=== PATIENT | female | born 1985 | race American Indian/Alaskan Native ===

== ENCOUNTER 2017-06-11 19:43 | Inpatient (IN) | payer OTHER ==
[2017-06-11 19:45] VITALS: BMI 44.2
--- NOTE | 2017-06-11 20:31 | ED PDOC ---
Arrival/HPI - General Chief Complaint: Pacemaker Problem Time Seen by Provider: 06/11/17 20:02 Historian: Patient - History of Present Illness Narrative History of Present Illness (Text): 06/11/17 20:15 A 31 year old female, whose past medical history includes cardiac arrhythmias, cardiac arrest, DVT, recent implantation of internal defibrillator 1 week prior , presents to the emergency department complaining of occasional vague chest discomfort associated with slight thumping sensation to chest. Patient reports she experiences heart rate going lower and has been experiencing generalized weakness for couple of days. Also, associated with one episode of vomiting. Patient denies of any fever, chills, diarrhea, shortness of breath, or any other complaints. No PMD Past Medical History - Provider Review Nursing Documentation Reviewed: Yes - Infectious Disease Hx of Infectious Diseases: None - Cardiac Hx Cardiac Disorders: Yes Hx Pacemaker: Yes Other/Comment: Random sinus tachycardia. Cardiac arrest @17 years old. Pacemaker/defib - Pulmonary Hx Asthma: Yes Hx Pulmonary Embolism: Yes - Neurological Hx Neurological Disorder: Yes Hx Migraine: Yes - HEENT Hx Blind: No - Endocrine/Metabolic Hx Endocrine Disorders: Yes Hx Diabetes Mellitus Type 2: Yes - Hematological/Oncological Hx Blood Disorders: No - Integumentary Hx Dermatological Disorder: Yes Other/Comment: Shingles - Musculoskeletal/Rheumatological Hx Musculoskeletal Disorders: No - Gastrointestinal Hx Gastrointestinal Disorders: No - Genitourinary/Gynecological Hx Genitourinary Disorders: No - Psychiatric Hx Psychophysiologic Disorder: No Hx Substance Use: No - Surgical History Hx Orthopedic Surgery: Yes (left knee) Hx Tubal Ligation: Yes Other/Comment: pacemaker placement with defib - Anesthesia Hx Anesthesia: Yes Hx Anesthesia Reactions: No - Suicidal Assessment Feels Threatened In Home Enviroment: No Family/Social History - Physician Review Nursing Documentation Reviewed: Yes Family/Social History: No Known Family HX Smoking Status: Never Smoked Hx Alcohol Use: No Hx Substance Use: No Allergies/Home Meds Allergies/Adverse Reactions: Allergies aspirin Allergy (Verified 06/11/17 19:55) ANAPHYLAXIS NSAIDS (Non-Steroidal Anti-Inflamma Allergy (Verified 06/11/17 19:55) SHORTNESS OF BREATH walnut Allergy (Verified 06/11/17 19:55) ANAPHYLAXIS coumadin Allergy (Uncoded 06/11/17 19:55) SHORTNESS OF BREATH Home Medications: Home Meds Medication Instructions Recorded Confirmed No Known Home Med 06/11/17 06/11/17 Review of Systems - Physician Review All systems were reviewed & negative as marked: Yes - Review of Systems Constitutional: absent: Fevers, Night Sweats Eyes: Other (generalized weakness) Respiratory: absent: SOB Cardiovascular: Other ("thumping sensation in chest") Gastrointestinal: Vomiting (one peisode of vomiting). absent: Diarrhea Physical Exam Vital Signs Reviewed: Yes Vital Signs Temp Pulse Resp BP Pulse Ox 06/11/17 23:00 98.6 F 75 16 120/86 99 06/11/17 21:45 98.6 F 77 16 124/77 99 06/11/17 19:45 98.5 F 79 16 113/69 100 Temperature: Afebrile Blood Pressure: Normal Pulse: Regular Respiratory Rate: Normal Appearance: Positive for: Well-Appearing Pain Distress: None Mental Status: Positive for: Alert and Oriented X 3 - Systems Exam Head: Present: Atraumatic, Normocephalic Pupils: Present: PERRL Extroacular Muscles: Present: EOMI Conjunctiva: Present: Normal Mouth: Present: Moist Mucous Membranes Neck: Present: Normal Range of Motion Respiratory/Chest: Present: Clear to Auscultation, Good Air Exchange, Other ( bandage to upper left chest wall defibrillator placement; no errythema to area) . No: Respiratory Distress, Accessory Muscle Use Cardiovascular: Present: Regular Rate and Rhythm, Normal S1, S2. No: Murmurs Abdomen: Present: Normal Bowel Sounds. No: Tenderness, Distention, Peritoneal Signs Back: Present: Normal Inspection Upper Extremity: Present: Normal Inspection. No: Cyanosis, Edema Lower Extremity: Present: Normal Inspection. No: Edema, CALF TENDERNESS Neurological: Present: GCS=15, CN II-XII Intact, Speech Normal Skin: Present: Warm, Dry, Normal Color. No: Rashes Psychiatric: Present: Alert, Oriented x 3, Normal Insight, Normal Concentration Medical Decision Making ED Course and Treatment: 06/11/17 20:18 Impression: 31 year old female with occasional vague chest discomfort associated with slight thumping sensation to chest. Physical exam shows bandage to upper left chest wall (defibrillator placement); overall normal examination. Plan: -- EKG -- Chest X-ray -- Labs -- Reassess and disposition Prior Visits: Notes and results from previous visits were reviewed. Patient was last seen in the emergency department on 03/08/2016 for headache. Patient was d/c home. Progress Notes: 06/11/17 22:19 Chest xray: No acute process, as read by me. EKG: Ordered, reviewed, and independently interpreted the EKG. Rate : 80 BPM Rhythm : NSR Interpretation : nonspecific T wave changes 06/11/17 23:[address] Darden, who requests patient to be admitted to her service, Dr. Huff on consult. - Lab Interpretations Lab Results: 06/11/17 19:50 06/11/17 21:20 Lab Results 06/11/17 21:20: Sodium 142, Potassium 3.8, Chloride 109 H, Carbon Dioxide 25, Anion Gap 12, BUN 10, Creatinine 1.0, Est GFR ( Amer) > 60, Est GFR (Non- Af Amer) > 60, Random Glucose 92, Calcium 8.6, Total Bilirubin 0.2, AST 28, ALT 32, Alkaline Phosphatase 55, Lactate Dehydrogenase 636, Total Creatine Kinase 94 , Troponin I < 0.01, Total Protein 6.8, Albumin 3.4, Globulin 3.4, Albumin/ Globulin Ratio 1.0 L 06/11/17 19:50: WBC 10.1, RBC 4.40, Hgb 12.2, Hct 37.4, MCV 85.0, MCH 27.7, MCHC 32.6, RDW 13.6, Plt Count 145, MPV 13.7 H 06/11/17 19:50: PT 13.4 H, INR 1.22 H, APTT 28.6 - RAD Interpretation Radiology Orders: 06/11/17 20:19 CHEST PORTABLE [RAD] Stat - Medication Orders Current Medication Orders: Discontinued Medications Fluconazole (Diflucan) 150 mg PO STAT STA PRN Reason: Protocol Stop: 06/11/17 23:37 Last Admin: 06/12/17 00:12 Dose: 150 mg - Scribe Statement The provider has reviewed the documentation as recorded by the Ruslan Akhtar Provider Scribe Attestation: All medical record entries made by the Blancaibjeremiah were at my direction and personally dictated by me. I have reviewed the chart and agree that the record accurately reflects my personal performance of the history, physical exam, medical decision making, and the department course for this patient. I have also personally directed, reviewed, and agree with the discharge instructions and disposition. Disposition/Present on Arrival - Present on Arrival Any Indicators Present on Arrival: No History of DVT/PE: Yes History of Uncontrolled Diabetes: No Urinary Catheter: No History of Decub. Ulcer: No History Surgical Site Infection Following: None - Disposition Have Diagnosis and Disposition been Completed?: Yes Diagnosis: Chest pain Disposition: HOSPITALIZED Disposition Time: 23:10 Patient Plan: Observation Condition: STABLE
[2017-06-11 20:54] LABS: HEMATOCRIT 37.4 % (36.0-48.0); MEAN CORPUSCULAR HEMOGLOBIN 27.7 pg (25.0-35.0); MEAN CORPUSCULAR HGB CONC 32.6 g/dl (31.0-37.0); MEAN PLATELET VOLUME 13.7 fl (7.0-11.0); RED CELL DISTRIBUTION WIDTH 13.6 % (11.5-14.5); WHITE BLOOD COUNT 10.1 10^3/ul (4.5-11.0)
[2017-06-11 21:27] LABS: INR 1.22 (0.93-1.08); PARTIAL THROMBOPLASTIN TIME 28.6 Seconds (25.1-36.5)
[2017-06-11 22:08] LABS: TROPONIN I < 0.01 ng/mL
[2017-06-11 22:32] LABS: BLOOD UREA NITROGEN 10 mg/dL (7-21); CALCIUM 8.6 mg/dL (8.4-10.5); CARBON DIOXIDE 25 mmol/L (21-33); CHLORIDE 109 mmol/L (98-107); GFR AFRICAN-AMERICAN > 60; GLUCOSE,RANDOM 92 mg/dL (70-110); POTASSIUM 3.8 mmol/L (3.6-5.0); SODIUM 142 mmol/L (132-148); TOTAL PROTEIN 6.8 g/dL (5.8-8.3)
[2017-06-11 22:33] LABS: ALKALINE PHOSPHATASE 55 U/L (38-126); ALT/SGPT 32 U/L (7-56); AST/SGOT 28 U/L (14-36); BILIRUBIN,TOTAL 0.2 mg/dL (0.2-1.3)
[2017-06-12 07:06] LABS: TROPONIN I < 0.01 ng/mL
--- NOTE | 2017-06-12 09:07 | RAD ---
HISTORY: pain COMPARISON: None available. TECHNIQUE: Chest, one view. FINDINGS: Examination limited by habitus. LUNGS: No focal consolidation. Please note that chest x-ray has limited sensitivity for the detection of pulmonary masses. PLEURA: No significant pleural effusion identified. No definite pneumothorax . CARDIOVASCULAR: Single lead left-sided AICD. The cardiomediastinal silhouette appears within normal limits of size. OSSEOUS STRUCTURES: No acute osseous abnormality identified. VISUALIZED UPPER ABDOMEN: Unremarkable. OTHER FINDINGS: None. IMPRESSION: Single lead left-sided AICD.
--- NOTE | 2017-06-12 14:37 | CON ---
DATE: 06/12/2017 INDICATIONS: Chest pain status post recent ICD implant. HISTORY OF PRESENT ILLNESS: This is a 31-year-old woman with a history of cardiac arrest, apparent long QT syndrome, cared for by Dr. Pineda at [facility] with a recent ICD implant, who came to the emergency room complaining of thumping in the chest, slight discomfort in the chest at times, and lack of energy. Most of these symptoms have been present since the recent implant of the ICD about a week ago. She was visiting in [place] and came to [facility] Emergency Room yesterday and was admitted to telemetry. This morning, she feels better. She notes an occasional thumping on telemetry. There has been sinus rhythm and no reports of arrhythmia or pacing noted. Conduit has come to interrogate the defibrillator. Apparently, it is in proper working order. She denies orthopnea, PND, syncope, presyncope, lightheadedness, dizziness, vertigo, edema, claudication, fever, chills, cough, sputum production, hemoptysis, abdominal pain, nausea, vomiting, diarrhea, constipation, or melena. PAST MEDICAL HISTORY: Notable for apparent long QT syndrome with a cardiac arrest at age 17, a recent evaluation, which was resulted in the implantation of an ICD about one week ago. She does not have records from that evaluation. She is under the care of Dr. Pineda. There is no history of rheumatic fever, myocardial infarction, stroke, TIA, diabetes, or hyperlipidemia. There is a history of pulmonary embolism recorded in the chart. There is a history of diabetes and shingles. MEDICATIONS: Medications at the time of admission include no current medications. ALLERGIES: SHE NOTES ALLERGIES TO NSAIDS AND ASPIRIN. SOCIAL HISTORY: She lives at home with her . She does not smoke cigarettes or drink alcohol. She is ambulatory. REVIEW OF SYSTEMS: A 10-point review of systems were otherwise unremarkable except as noted above. PHYSICAL EXAMINATION: GENERAL: She is a well-developed woman lying in bed in telemetry in no acute distress. VITAL SIGNS: She is in sinus rhythm at 78 beats per minute, she is afebrile, blood pressure 105/61, respirations 18, and O2 saturation 98% to 99%. HEENT: Reveals no neck vein distention, thyromegaly or carotid bruits. Mucus membranes are moist. Conjunctivae are pink. NECK: Supple. LUNG: Lung phipps clear. HEART: Examination of the heart revealed normal first and second heart sounds. ABDOMEN: Soft. Bowel sounds present. No mass, organomegaly, tenderness, rebound, or guarding. No CVA tenderness. No palpable abdominal aortic aneurysm. EXTREMITIES: Revealed no cyanosis, clubbing, or edema. NEUROLOGIC: She is awake, alert, and oriented. SKIN: Warm and dry. No rash or cellulitis. PSYCHIATRIC: Normal as to mood and affect. LABORATORY DATA AND IMAGING: EKG demonstrates regular sinus rhythm with T-wave inversions in precordial leads, acute T interval is mildly prolonged. The chest x-ray is unremarkable. There is a ICD present. There is no evidence of congestive heart failure, infiltrate, or effusion. CBC is unremarkable. PT/INR 13.4 and 1.22 respectively. PTT is 28.6, electrolytes, BUN, creatinine, blood sugar, LFTs, CK and 2 troponins all unremarkable. IMPRESSION: Rick Harrell is a 31-year-old woman with apparent prolonged QT syndrome and a history of cardiac arrest with recent ICD implant who suffered from palpitations, may have a history of supraventricular tachycardia also who complains of thumping in the chest, lack of energy, and low blood pressure since the implantable cardioverter-defibrillator implant about one week ago by Dr. Pineda. PLAN: At this time, she appears stable. The ICD was checked by the [employer] independent sales representative and apparently it is functioning well. He is providing this information to Dr. Pineda directly. I have discussed the possibility of the patient being transferred to [facility] for further evaluation and perhaps reprogramming of her device. She is looking into this and is contacting Dr. Pineda's office. In the meantime, she will be out of bed and ambulate to see if her symptoms return. We will continue to monitor on telemetry. I will follow along with you. I will make additional recommendations based on her clinical course. Ashish Huff MD
--- NOTE | 2017-06-12 16:53 | CARD ---
APPROVED REPORT EKG Measurement Heart [id number] <Conclusion> Normal sinus rhythm Nonspecific T wave abnormality Abnormal ECG
--- NOTE | 2017-06-12 20:07 | CT ---
EXAM: CT Pelvis Without Intravenous Contrast CLINICAL HISTORY: 31 years old, female; Pain; Hip pain; Left hip; Additional info: Lt hip pain TECHNIQUE: Axial computed tomography images of the pelvis without intravenous contrast. All CT scans at this facility use one or more dose reduction techniques, viz.: automated exposure control; ma/kV adjustment per patient size (including targeted exams where dose is matched to indication; i.e. head); or iterative reconstruction technique. Coronal and sagittal reformatted images were created and reviewed. COMPARISON: No relevant prior studies available. FINDINGS: Bones/joints: No acute fracture. Soft tissues: Subcentimeter nodule with minimal surrounding inflammation right anterior abdominal wall, nonspecific. Intraperitoneal space: Trace free fluid within pelvis. IMPRESSION: 1. No fracture. 2. If hip pain persists, consider MRI to exclude occult fracture/internal derangement. 3. Incidental/non-acute findings are described above.
--- NOTE | 2017-06-12 22:49 | HP ---
HISTORY OF PRESENT ILLNESS: This 31-year-old female was examined at the bedside in the presence of her nurse, Marleny Dodson, registered nurse. The patient was examined earlier by Dr. Huff from Cardiology. She was admitted through the Emergency Room with complaints of thumping in her chest in the setting of a recently placed pacemaker defibrillator at [facility] in [place] approximately 1 week ago. The patient was also complaining of nonspecific complaints of left leg weakness, discomfort, history of feeling anxious and fatigue and this is all subsequent to her reportedly newly diagnosed QT prolongation syndrome that prompted the placement of a pacemaker defibrillator approximately 1 week ago by her Cardiology team in [place], [place]. PAST MEDICAL HISTORY: The patient denies any other significant past medical history. She is morbidly obese. She states she had a history of a DVT in the distant past. ALLERGIES: SHE STATES SHE HAS SENSITIVITIES TO ASPIRIN, NONSTEROIDALS, WALNUTS AND COUMADIN. FAMILY HISTORY: Significant for multiple maternal and paternal family members with prolonged QT interval requiring pacemakers and defibrillators. SOCIAL HISTORY: The patient states she is a nondrinker, nonsmoker, non-IV drug misuser. MEDICATIONS: No current medication at present. REVIEW OF SYSTEMS: CONSTITUTIONAL: She denied fever or chills. HEENT: Head: There is no reports of headache or seizures. Eyes: Review no change in visual acuity. Ear: Review no hearing loss. Throat: Review no swallowing difficulty. NECK: Review no stiffness. CARDIAC: Review as per HPI. PULMONARY: No cough. No hemoptysis. GI: No hematemesis. No melena. : No dysuria. SKIN: No rash. VASCULAR: No claudication. PSYCHOLOGICAL: She is anxious. NEUROLOGICAL: No knowledge of stroke. OUTPATIENT MEDICATION: None. PHYSICAL EXAMINATION GENERAL: She is in a normal sinus rhythm on the air sampling and monitoring. VITAL SIGNS: Temperature 98.5, respirations 18, pulse 78, blood pressure 105/61. Pulse ox 99% room air. HEENT: Head normocephalic, atraumatic. Eyes: No icterus. Ears: Clear. Throat: Noninjected. NECK: Supple. HEART: Regular S1, S2. LUNGS: Clear. ABDOMEN: Obese, nontender. No palpable organomegaly. No rebound, no guarding. No tenderness. EXTREMITIES: No clubbing, no cyanosis, no edema. She has no Homans' sign. SKIN: No rash. VASCULAR: Legs warm to touch. PSYCHOLOGICAL: Alert and oriented x3. NEUROLOGIC: Grossly intact. Motor strength 5/5. LABORATORY DATA: White count 10,100, hemoglobin 12.2, hematocrit 37.4, platelets 145,000. PT/INR 1.22, PTT 28.6. Sodium 142, K 3.8, chloride 109, bicarb 25, BUN 10, creatinine 1.0, random blood sugar 92. Bilirubin 0.2, AST 28, ALT 32, alk phos 55. CPK #1 94. Troponin less than 0.01. CPK #2 75. Troponin less than 0.01. Chest x-ray shows no active disease. EKG reportedly showed normal sinus rhythm. IMPRESSION: A 31-year-old female with obesity, history of prolonged QT interval prompting the need for a pacemaker defibrillator, now with complaints of left leg weakness, numbness, rule out neuropathy, rule out spinal arthritis, rule out hip arthritis, also with history of deep venous thrombosis and deconditioning and anxiety as discussed with her nurse, Marleny Dodson, registered nurse. The patient will be scheduled for bilateral venous Doppler ultrasounds to rule out deep venous thrombosis for completeness sake. I have requested a consultation with Dr. Angel Doe from Orthopedics to evaluate the patient's left leg discomfort complaints to rule out degenerative joint disease of hip or spine. The nurse will inform Dr. Doe that the patient does indeed have a newly placed pacemaker defibrillator and is not candidate for MRI studies. The patient also will be given a trial of Neurontin, Ultracet p.r.n. severe pain. She will be requested to have Physical Therapy for ambulation safety and I will await Dr. Huff's evaluation and workup plan. It should be noted that the patient was seen by the [employer] pacemaker territory sales representative earlier today. The pacemaker was checked and was reportedly no abnormalities noted and this was discussed with the patient as well. The patient was also advised that upon clearance from Cardiology and Orthopedics, she should return to her Cardiology team at [facility] for additional followup and further testings as may be required. All this was discussed with the patient at bedside in length, greater than 60 minutes was spent in the care management, discussion, review of labs, x-rays and reports for this patient today. All questions were answered. Gloria Darden MD [facility] # [id number] [place]
[2017-06-13] MEDS ORDERED: Oxycodone/Acetaminophen 5/325 mg Tab PO ONE (06:10)
--- NOTE | 2017-06-13 08:41 | RAD ---
PROCEDURE: Radiographs of the pelvis. HISTORY: lt hip pain COMPARISON: None. FINDINGS: BONES: Pelvic Bones: Unremarkable. Hips: Grossly unremarkable. JOINTS: Sacroiliac Joints: Unremarkable. Pubic Symphysis: Unremarkable. OTHER FINDINGS: None. IMPRESSION: Unremarkable radiographs of the pelvis.
--- NOTE | 2017-06-13 09:14 | US ---
HISTORY: Leg pain and swelling. Evaluate for DVT PHYSICIAN(S): Taz Bond MD. TECHNIQUE: Duplex sonography and color-flow Doppler with graded compression were used to evaluate the deep venous systems of both lower extremities. FINDINGS: The visualized deep venous systems of both lower extremities are sonographically normal and compressible. Normal wave forms and augmentation are seen. There is no sonographic evidence for deep venous thrombosis in the visualized segments of both lower extremities. IMPRESSION: No sonographic evidence for deep venous thrombosis in the visualized segments of both lower extremities.
[2017-06-13 09:29] LABS: URINE BILIRUBIN NEGATIVE (NEGATIVE); URINE BLOOD SMALL (NEGATIVE); URINE GLUCOSE (UA) NEGATIVE (NEGATIVE); URINE KETONE NEGATIVE (NEGATIVE); URINE LEUKOCYTE ESTERASE MODERATE Leu/uL (NEGATIVE); URINE PROTEIN NEGATIVE mg/dL (<30 mg/dL); URINE UROBILINOGEN 0.2 E.U./dL (<1 E.U./dL)
[2017-06-13 09:36] LABS: URINE APPEARANCE SL CLOUDY (CLEAR); URINE COLOR YELLOW (YELLOW)
[2017-06-13 09:44] LABS: URINE BACTERIA FEW (NEG); URINE RBC 0 - 2 /hpf (0-2)
--- NOTE | 2017-06-13 10:42 | CON ---
ORTHOPEDIC CONSULT DATE: 06/12/2017 This is a 31-year-old female with complaints of pain in her left groin for approximately a week, starting soon after she had a defibrillator applied through her upper extremities for cardiac condition. This is 31 years old and defibrillator was placed approximately on 06/02/2017, soon after she developed this groin pain in the left and it is aggravated by hyperextension of the hip. No rotation can mimic the pain. Flexion is free of pain. Rotation of the hip is good; just when I extend the hip, the pain comes acutely right over the groin. There is no apparent clinical signs of a hernia and no arthritis. It could be a groin sprain that occurred possibly when they were moving her about for the placement of an ICD implant at [place]. there could have been some under stresses applied to the left hip. I am going to do an x-ray and a CAT scan to see or to rule out any bony pathology which I do not think so, but maybe we could see if there is some swelling in the left hip joint, which could be evidence of a left groin sprain joint. There is no apparent fracture, but we have to see why the groin is hurting her, especially when I extend it. She is going to see a neurologist soon and she may even have to be sent to [place] where the procedure was done to implant the ICD for the heart problem. I will also make sure how she ambulates with a walker or at least a cane, so she does not have any inadvertent falls, so I feel orthopedically this is more likely a left hip sprain from moving about from stretcher to the procedure table for the cardiac treatment, and I will follow her after the x-ray is done and if she does go to [place], she should take copies of the x-ray to [place]. Angel Doe DO
--- NOTE | 2017-06-13 11:00 | PN ---
DATE: SUBJECTIVE: Followup of the CAT scan done on the patient's left hip and pelvis and CAT scan of the hip. Both showed no orthopedic pathology, but there is a suggestion of fluid in the pelvis that may have to be followed with gynecologic consult to make sure there are no gynecologic problems, but as far as the pelvis is concerned, all the are within normal limits, but still have inguinal sprain, which will have to just take time to resolve, but a gynecologic consult probably is in order at this time, because she cannot have MRI, so I have to get an exam by a casting operator. In the meantime, we will continue therapy. Angel Doe DO
[2017-06-13 16:43] VITALS: BP 94/51; RESP 20; TEMP 98.9; O2SAT 98
[2017-06-13 18:34] VITALS: PULSE 76
--- NOTE | 2017-06-13 20:47 | DS ---
SUBJECTIVE: This 31-year-old female was examined at the bedside in the presence of her nurse, Padmini Valencia, registered nurse and immigration case manager, Aby Marley, registered nurse. I have had a lengthy discussion with the patient and Dr. Ashish Huff from Cardiology regarding this case. The patient was admitted approximately 1 week after having a ventricular pacemaker defibrillator implanted at [facility] by Dr. Monty Rivera, Cardiology. The patient has been feeling of something discomfort in her chest which she associates with fatigue, and it is Dr. Huff's opinion that the patient should have a re-interrogation as well as a resetting of the pacemaker parameters by her attending farmworker fur. The patient is also complaining of intermittent hypotension which he feels could be related to bradycardia and which would be improved by readjustment of her pacemaker settings. He has placed a call to Dr. Rivera to discuss this and it is his opinion that the patient should be transferred to [facility] for further evaluation of the above. It should also be noted the patient was seen in consultation by Dr. Angel Doe from Orthopedics because of left thigh discomfort which he feels is related to a sprain ligament, and his initial x-rays including hip CT and pelvic x-ray were unremarkable for fracture or dislocations. The patient remains in a normal sinus rhythm. PHYSICAL EXAMINATION: VITAL SIGNS: Temperature 98.2, respirations 18, pulse 86, and blood pressure 102/67 with a pulse ox of 100% on room air. There have been no reports of any significant cardiac arrhythmias to date. HEENT: Head: Normocephalic, atraumatic. Eyes: No icterus. Ears: Clear. Throat: Non-injected. NECK: Supple. HEART: Regular S1, S2. LUNGS: Clear. ABDOMEN: Obese. There is a small hematoma on her right abdominal wall secondary to her subcu heparin injections at the [facility] from a week ago. No rebound. No guarding. No tenderness. EXTREMITIES: No edema. SKIN: Without rash. NEUROLOGIC: Intact. PSYCHOLOGIC: Alert and oriented x3. VASCULAR: Legs warm to touch. LABORATORY DATA: White count 10,100, hemoglobin 12.2, hematocrit 37.4, platelets 145,000. Sodium 142, potassium 3.8, chloride 109, bicarb 25, BUN 10, creatinine 1.0, random blood sugar 92. Bilirubin 0.2, AST 28, ALT 32, alk phos 55. CPK #1, 94. CPK #2, 75. Troponin #1, less than 0.01. Troponin #2, less than 0.01. EKG showed normal sinus rhythm with nonspecific ST-T wave changes. Chest x-ray showed no active disease. Venous Dopplers of both lower extremities showed no evidence of venous DVT. IMPRESSION: A 31-year-old female, status post a single lead ventricular pacemaker defibrillator placement approximately [address] Monty Rivera at [facility] in [facility], now admitted with feeling of chest discomfort, thumping, and hypotension possibly related to issues with her current pacemaker and possible need for resetting of its parameters according to Cardiology. Also, with morbid obesity, probable tendonitis or degenerative arthritis, and history of the above. PLAN: Plan at the present time is to maintain this patient on the cardiac unit as discussed with nurse, Padmini Valencia and Aby Marley. The patient will be calling her farmworker fur as well as having Dr. Huff speak directly with Dr. Monty Rivera regarding a coordination of transfer to his unit at the [facility] [facility]. The patient will also have additional Orthopedic workup entertained there, and all of the above was discussed in detail with the patient at her bedside. All questions were answered. This case was reviewed with nursing, case management, Cardiology, and Orthopedics as well. The patient remains stable at present. Gloria Darden MD [place]
== END 2017-06-13 18:55 | disposition home or self-care (01) | DRG 313 ==
LOC: ED 19:43 → ERH 23:08 → 3RNO 06-12 00:37
PROVIDERS: ADMIT Internal Medicine; ATTEND Internal Medicine
DX: R07.89 Other chest pain (principal); I95.9 Hypotension, unspecified; Z68.42 Body mass index [BMI] 45.0-49.9, adult; E66.01 Morbid (severe) obesity due to excess calories; M77.9 Enthesopathy, unspecified; M19.90 Unspecified osteoarthritis, unspecified site; S73.102A Unspecified sprain of left hip, initial encounter; Z95.810 Presence of automatic (implantable) cardiac defibrillator; Z86.74 Personal history of sudden cardiac arrest; Z88.6 Allergy status to analgesic agent; Z86.718 Personal history of other venous thrombosis and embolism